=== PATIENT | female | born 1980 | race Caucasian/White ===

== ENCOUNTER 2025-05-13 07:34 | Day surgery (SDC) | payer BC ==
[~2025-05-13] VITALS: Ht 167.6 cm; Wt 135.0 kg
[~2025-05-13 07:34] MED LIST: CAMILA0.35 MG PO; CEFAZOLIN SODIUM 3 GM/30 ML SYR IV SCH; IBLOOD GLUCOSE TEST STRIP 1 EA TEST VI PRN; LACTATED RINGER'S 1,000 ML IV SCH; LIDOCAINE HCL 1% 5 ML SDV INJ ONE
[2025-05-13 08:05] VITALS: BP 143/75
[2025-05-13] MEDS ORDERED: KETOROLAC TROMETHAMINE 15 MG/ML VIAL IV PRN (09:00)
[2025-05-13] MEDS ORDERED: DICLOFENAC SOD 75 MG TABEC PO SCH ×2 (09:00→21:00)
[2025-05-13] MEDS ORDERED: HYDROCODONE/ACETA 5/325 TAB PO PRN (09:00)
--- NOTE | 2025-05-13 09:19 | NUR ---
PT AMBULATED TO THE BATHROOM WAS ABLE TO VOID A GOOD AMOUNT OF CLEAR YELLOW URINE. PT TUCKED BACK INTO BED WARM BLANKETS PLACED ON PT, CALL LIGHT WITHIN REACH, AT BEDSIDE
[2025-05-13] MEDS ORDERED: KETOROLAC TROMETHAMINE 30 MG/ML VIAL ONE (09:23)
[2025-05-13] MEDS ORDERED: fentaNYL citrate 100 MCG/2 ML VIAL ONE (09:49)
[2025-05-13] MEDS ORDERED: ROCURONIUM BROMIDE 50 MG/5 ML SYR ONE (09:49)
[2025-05-13] MEDS ORDERED: MORPHINE SULFATE 10 MG/ML VIAL IV PRN (10:00)
[2025-05-13] MEDS ORDERED: METOCLOPRAMIDE HCL 10 MG/2 ML SDV IV PRN (10:00)
[2025-05-13] MEDS ORDERED: NALOXONE HCL 0.4 MG SYR IV PRN ×2 (10:00→10:45)
[2025-05-13] MEDS ORDERED: IBLOOD GLUCOSE TEST STRIP 1 EA TEST VI PRN ×2 (10:00→10:45)
[2025-05-13] MEDS ORDERED: fentaNYL citrate 50 MCG/ML SDV IV PRN (10:00)
[2025-05-13] MEDS ORDERED: DEXAMETHASONE SOD PHOS 4 MG/ML VIAL ONE (10:09)
[2025-05-13] MEDS ORDERED: SUGAMMADEX SODIUM 200 MG/2 ML ML ONE (10:23)
[2025-05-13] MEDS ORDERED: HYDROCODON-ACE1 EA10 PO (10:33)
[2025-05-13] MEDS ORDERED: DICLOFENAC SODI75 MG PO (10:33)
[2025-05-13] MEDS ORDERED: KETOROLAC TROMETHAMINE 30 MG/ML VIAL IV PRN (10:45)
--- NOTE | 2025-05-13 10:55 | NUR ---
05/13/25 [id number] Nicole Andino 1039- PT ARRIVES TO PACU, SEMI COATES POSITION, REACTIVE TO STIMULUS, BUT NOT FOLLOWING INSTRUCTION WELL. O2 AT 10L PER MASK, BREATHING EVEN AND NON LABORED, ENCOURAGED TO DEEP BREATH AND COUGH WHICH WASN'T FOLLOWED WELL. PT RECOVERING FROM BRONCHOSPASM, SUPERVISOR DRAPERY HANGING AT BEDSIDE. ABD SOFT, NON DISTENDED. DRESSING TO RIGHT KNEE. ALL MONITORS IN PLACE. 1046- PT WAKES EASILY TO STIMULUS, CMS INTACT TO RIGHT FOOT, ICE TO KNEE.
[2025-05-13 11:23] VITALS: BP 132/85
--- NOTE | 2025-05-13 11:31 | NUR ---
1120 PT BACK TO DS FROM PACU AWAKE AND ALERT REPORTS MILD TOLERABLE PAIN TO RT KNEE. PT SHIVERING OMER MONIQUE PLACE BTWN BLANKTS ON PT. AT BEDSIDE. CALL LIGHT WITH IN REACH.
--- NOTE | 2025-05-13 11:42 | NUR ---
PT REPORTS PAIN IS TOLERABLE. SHE DENIES NAUSEA
--- NOTE | 2025-05-13 11:42 | NUR ---
PT DRINKING JUICE AND EATING CRACKERS TOLERATES WELL.
--- NOTE | 2025-05-13 12:16 | NUR ---
PT AMBULATED TO BATHROOM WITH MINIMAL ASSIST. SHE WAS ABLE TO VOID 250ML OF DARK YELLOW URINE. PT AMBULATED BACK TO HER ROOM, TUCKED HER BACK INTO BED. WARM BLANKETS AND OMER HUGGER PLACED ON PT. PT DENIES PAIN AND NAUSEA.
[2025-05-13 12:19] VITALS: BP 120/75
--- NOTE | 2025-05-13 13:28 | NUR ---
1125 PT REPORTS READINESS TO GO HOME, DISCHARGE INSTRUCTIONS GIVEN TO PT AND BOTH VOICED UNDERSTANDING. PT ABLE TO DRESS WITH MINIMAL HEALP.
--- NOTE | 2025-05-13 13:30 | NUR ---
1230 PT CONTINUES TO DENY PAIN AND NAUSEA. PT WHEELED OUT TO CAR.
[2025-05-13 14:13] VITALS: BP 135/94
--- NOTE | 2025-05-16 07:51 | OR ---
[facility] [address] [place], [place] [address] Signed DATE OF OPERATION: 05/13/2025 SURGEON: Reyna Tillman MD PREOPERATIVE DIAGNOSIS: Medial meniscus tear, right knee. POSTOPERATIVE DIAGNOSIS: Medial meniscus tear, right knee. PROCEDURES PERFORMED: Right knee arthroscopy with partial medial meniscectomy, debridement, chondral flaps of the lateral femoral condyle. ENT NURSE: None. ANESTHESIA: General. BLOOD LOSS: Minimal. BRIEF HISTORY: Luly is a 44-year-old female with pain and catching in her knee. MRI was consistent with medial meniscus tear. Risks and benefits of operative treatment were discussed with her with nonoperative measures failed to provide relief. Once consent was obtained, she was taken to the operating room. After adequate anesthesia, she was placed on the OR bed. The left leg was flexed, abducted, and externally rotated on a well-padded leg gonsalves. The right was placed in well-padded proximal thigh leg gonsalves with no tourniquet. The leg was then prepped and draped in a standard sterile fashion. The portal sites were injected with 0.25% Marcaine with epinephrine. The standard inferolateral and superolateral portals were made. The inferolateral portal had to be modified a little bit to avoid the varicose veins. The scope was introduced into the knee. ARTHROSCOPIC FINDINGS: The knee showed a significant synovitis throughout. 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 There was a large medial osteophyte on the medial femoral condyle. The medial gutter and lateral gutters Electronically Signed By: REYNA TILLMAN MD 05/16/25 0751 PATIENT NAME: LULY MOSS OPERATIVE REPORT DATE OF : 78 REPORT #: [id number] PHYSICIAN: REYNA TILLMAN MD PCP: ALINA REYES PAC REPORT IS CONFIDENTIAL AND NOT TO BE RELEASED WITHOUT AUTHORIZATION [facility] [address] [place], [place] [address] Signed were clear. ACL and PCL were intact. Medial compartment showed diffuse grade 3 chondromalacia of the femur and grade 2 to the tibia. There was a small radial tear with an undersurface horizontal tear on the mid medial border. The lateral compartment showed diffuse grade 2 chondromalacia with some grade 3 areas and two large flaps off the lateral femoral condyle. DESCRIPTION OF OPERATION: Standard inferomedial portal was made after localization using a spinal needle. The straight and curved biters were then used to trim the meniscus tear back to a stable rim. The cartilage flaps on both the medial and lateral femoral condyle were then debrided using the shaver back to a stable rim. All debris was evacuated. The scope was withdrawn. Portals were closed with 3-0 nylon and the knee was injected with 60 mg Toradol. The wounds were dressed with Adaptic, ABD, and Uzair wrap. She tolerated the procedure well. All sponge, needle, and instrument counts were correct. Reyna Tillman MD BA/MODL /[id number] Copies: ~ Electronically Signed By: REYNA TILLMAN MD 05/16/25 0751 PATIENT NAME: LULY MOSS OPERATIVE REPORT DATE OF : 78 REPORT #: [id number] PHYSICIAN: REYNA TILLMAN MD PCP: ALINA REYES PAC REPORT IS CONFIDENTIAL AND NOT TO BE RELEASED WITHOUT AUTHORIZATION
== END 2025-05-13 12:40 | disposition home or self-care (01) ==
LOC: DS 07:34
PROVIDERS: ATTEND Specialist
PROC: 0SJC4ZZ Inspection of Right Knee Joint, Percutaneous Endoscopic Approach (ICD-10-PCS; principal; 2025-05-13 10:40)
DX: S83.241A Other tear of medial meniscus, current injury, right knee, initial encounter (principal); M65.98 Unspecified synovitis and tenosynovitis, other site; M94.261 Chondromalacia, right knee; K21.9 Gastro-esophageal reflux disease without esophagitis
CPT/HCPCS: 01400; 84703; J0690; J1100; J1885; J2405; J2704; J3010; J3490; J7121